=== PATIENT | female | born 1950 | race Two or more races ===

== ENCOUNTER 2024-02-25 12:28 | Inpatient (IN) | payer OTHER ==
[~2024-02-25] VITALS: Ht 127 cm; Wt 72.0 kg
[2024-02-25] MEDS: NITROGLYCERIN 0.4 MG SL TAB SL ONE (13:38)
[2024-02-25] MEDS: ASPirin 325 MG TAB PO ONE (13:38)
[2024-02-25 13:48] LABS: Chloride 103 mmol/L (98-107); Potassium 3.2 mmol/L (3.5-5.1); Sodium 140 mmol/L (136-145)
[2024-02-25 13:49] LABS: Anion Gap 5 (5-15); Carbon Dioxide 32 mmol/L (20-30)
[2024-02-25 13:50] LABS: Calcium 9.9 mg/dL (8.7-10.4)
[2024-02-25 13:52] LABS: Basophils # (auto) 0 10 ^3/uL (0-0.2); Basophils % (auto) 0.5 % (0.0-2.0); Eosinophils # (auto) 0.2 10 ^3/uL (0-0.8); Eosinophils % (auto) 2.2 % (0.0-7.0); Hematocrit 40.4 % (36.0-46.0); Hemoglobin 13.7 g/dL (12.2-16.2); Lymphocytes # (auto) 2.6 10 ^3/uL (0.4-5.4); Lymphocytes % (auto) 28.4 % (10.0-50.0); Mean Corpuscular Hemoglobin 28.8 pg (28.0-32.0); Mean Corpuscular Hgb Conc. 33.8 g/dL (32.0-36.0); Mean Corpuscular Volume 85.1 fL (80.0-100.0); Monocytes # (auto) 0.7 10 ^3/uL (0-1.3); Monocytes % (auto) 7.2 % (0.0-12.0); Neutrophils # (auto) 5.6 10 ^3/uL (1.6-8.6); Neutrophils % (auto) 61.7 % (37.0-80.0); Nucleated Red Blood Cells % 0.1 %; Platelet Count (auto) 292 10^3/uL (140-450); Red Blood Cells 4.75 10^6/uL (4.0-5.20); Red Cell Distribution Width 13.9 % (11.8-14.3); White Blood Cell 9.1 10^3/uL (4.4-10.8)
[2024-02-25 13:54] LABS: Glucose 131 mg/dL (74-106)
[2024-02-25 13:55] LABS: BUN/Creatinine Ratio 8.9 (10.0-20.0); Blood Urea Nitrogen 17 mg/dL (9-23)
[2024-02-25] MEDS: MORPHINE SULFATE 4 MG/ML SYR/VIAL IV ONE (17:00)
[2024-02-25] MEDS: ONDANSETRON HCL 4 MG/2 ML VIAL IV ONE (17:00)
[2024-02-25 18:13] VITALS: PULSE 64; RESP 18; O2SAT 95
[2024-02-25 19:15] VITALS: PULSE 67; RESP 20; O2SAT 96
[2024-02-25] MEDS ORDERED: DOCUSATE SOD 100 MG CAP PO PRN (21:45)
[2024-02-25] MEDS ORDERED: ACETAMINOPHEN 325 MG TAB PO PRN (21:45)
[2024-02-25] MEDS ORDERED: HYDROcodone-ACET 5/325MG TAB PO PRN (21:45)
[2024-02-25] MEDS ORDERED: DEXTROSE (50%) 50ML SYRG IV PRN (21:45)
[2024-02-25] MEDS ORDERED: MORPHINE SULFATE INJ 2 MG/ml SYRG IV PRN (21:45)
[2024-02-25] MEDS ORDERED: ONDANSETRON HCL 4 MG/2 ML VIAL IV PRN (21:45)
[2024-02-25] MEDS ORDERED: hydrALAZINE HCL 20 MG/ML VL IV PRN (21:45)
[2024-02-25] MEDS: SODIUM CHLOR 0.9% PF (SALINE LOCK) 10ML VIAL/SYR IV SCH (22:00)
[2024-02-25] MEDS: POTASSIUM CHL 20 Meq TABLET PO ONE (22:31)
[2024-02-25 22:44] LABS: Urine Bacteria None Seen /hpf (None Seen)
[2024-02-25] MEDS: ACCU-CHEK COMFORT CURVE STRIP VI SCH (23:20)
[2024-02-25] MEDS: InsuLIN REG 1unit/0.01ml Soln (100units/ml) SC SCH (23:21)
[2024-02-26] LABS: Urine Blood Negative /uL (Negative); Urine Clarity Turbid (Clear); Urine Color Yellow (Yellow); Urine Hyaline Cast MANY /lpf (0 - 2); Urine Protein, UAD 1+ (Negative); Urine Specific Gravity 1.031 (1.001-1.035); Urine Urobilinogen 3 mg/dL (Negative); Urine WBC 6 /hpf (0 - 5); Urine pH 5.5 (5.0-9.0)
[2024-02-26] MEDS ORDERED: MORPHINE SULFATE INJ 2 MG/ml SYRG IV PRN (03:30)
[2024-02-26] MEDS ORDERED: NITROGLYCERIN 0.4 MG SL TAB SL PRN (03:30)
[2024-02-26 04:35] LABS: Basophils # (auto) 0 10 ^3/uL (0-0.2); Basophils % (auto) 0.4 % (0.0-2.0); Eosinophils # (auto) 0.3 10 ^3/uL (0-0.8); Eosinophils % (auto) 3.2 % (0.0-7.0); Hematocrit 36.5 % (36.0-46.0); Hemoglobin 12.7 g/dL (12.2-16.2); Lymphocytes # (auto) 2.9 10 ^3/uL (0.4-5.4); Lymphocytes % (auto) 34.4 % (10.0-50.0); Mean Corpuscular Hemoglobin 29.1 pg (28.0-32.0); Mean Corpuscular Hgb Conc. 34.6 g/dL (32.0-36.0); Mean Corpuscular Volume 84.1 fL (80.0-100.0); Monocytes # (auto) 0.7 10 ^3/uL (0-1.3); Monocytes % (auto) 8.1 % (0.0-12.0); Neutrophils # (auto) 4.6 10 ^3/uL (1.6-8.6); Neutrophils % (auto) 53.9 % (37.0-80.0); Nucleated Red Blood Cells % 0.1 %; Platelet Count (auto) 233 10^3/uL (140-450); Red Blood Cells 4.34 10^6/uL (4.0-5.20); Red Cell Distribution Width 14.2 % (11.8-14.3); White Blood Cell 8.5 10^3/uL (4.4-10.8)
[2024-02-26 04:53] LABS: Alanine Aminotransferase 32 U/L (7-40); Alkaline Phosphatase 106 U/L (46-116); Anion Gap 9 (5-15); Aspartate Aminotransferase 29 U/L (13-40); BUN/Creatinine Ratio 10.8 (10.0-20.0); Bilirubin, Total 0.3 mg/dL (0.2-1.0); Blood Urea Nitrogen 20 mg/dL (9-23); Calcium 9.3 mg/dL (8.7-10.4); Carbon Dioxide 27 mmol/L (20-30); Chloride 104 mmol/L (98-107); Glucose 148 mg/dL (74-106); Potassium 3.3 mmol/L (3.5-5.1); Sodium 140 mmol/L (136-145)
[2024-02-26 04:54] LABS: Total Protein 6.4 g/dL (5.7-8.2)
[2024-02-26] MEDS: LEVOTHYROXINE SODIUM 50 MCG TAB PO SCH (06:01)
[2024-02-26] MEDS: InsuLIN REG 1unit/0.01ml Soln (100units/ml) SC SCH (06:30)
[2024-02-26 08:26] VITALS: BP 106/49; PULSE 71; RESP 16; TEMP 98; O2SAT 96
[2024-02-26 09:09] VITALS: BP 106/49; PULSE 71; RESP 16; TEMP 98; O2SAT 96
[2024-02-26] MEDS: ASPirin 81 mg TAB PO SCH (09:15)
[2024-02-26] MEDS: FAMOTIDINE (10MG/ML) 2ML VL IV SCH (09:15)
[2024-02-26] MEDS: POTASSIUM CHL 20 Meq TABLET PO STA (09:16)
[2024-02-26] MEDS ORDERED: METF-370 PO (09:30)
[2024-02-26] MEDS ORDERED: METO-159 PO (09:30)
[2024-02-26] MEDS ORDERED: IBU600T PO (09:30)
[2024-02-26] MEDS ORDERED: ASPI-543 PO (09:30)
[2024-02-26 13:20] LABS: Alanine Aminotransferase 30 U/L (7-40); Albumin 4.2 g/dL (3.2-4.8); Alkaline Phosphatase 121 U/L (46-116); Anion Gap 4 (5-15); Aspartate Aminotransferase 27 U/L (13-40); BUN/Creatinine Ratio 12.2 (10.0-20.0); Bilirubin, Total 0.3 mg/dL (0.2-1.0); Blood Urea Nitrogen 18 mg/dL (9-23); Calcium 9.7 mg/dL (8.7-10.4); Carbon Dioxide 29 mmol/L (20-30); Chloride 105 mmol/L (98-107); Glucose 211 mg/dL (74-106); Potassium 3.6 mmol/L (3.5-5.1); Sodium 138 mmol/L (136-145)
[2024-02-26 13:21] LABS: Total Protein 6.7 g/dL (5.7-8.2)
[2024-02-26 13:27] VITALS: BP 132/68; PULSE 79; RESP 16; TEMP 98.1; O2SAT 97
[2024-02-26 17:05] VITALS: BP 122/52; PULSE 91; RESP 17; TEMP 98.2; O2SAT 97
== END 2024-02-26 17:00 | disposition home or self-care (01) | DRG 640 ==
LOC: ER 12:28 → TELE 02-26 03:28 → TELE-WESTW 02-26 08:15
PROVIDERS: ADMIT Internal Medicine Pulmonary Disease; ATTEND Emergency Medicine
DX: E87.6 Hypokalemia (principal); N17.0 Acute kidney failure with tubular necrosis; I12.9 Hypertensive chronic kidney disease with stage 1 through stage 4 chronic kidney disease, or unspecified chronic kidney disease; E11.22 Type 2 diabetes mellitus with diabetic chronic kidney disease; N18.30 Chronic kidney disease, stage 3 unspecified; R07.89 Other chest pain
CPT/HCPCS: 36415; 71045; 80048; 80053; 81001; 82962; 83036; 83735; 84443; 84484; 85025; 96372; 99291; G0378; J1815; J2405; J3490